=== PATIENT | female | born 1985 | race Caucasian/White ===

== ENCOUNTER 2018-05-17 12:57 | Emergency (ER) | payer OTHER ==
[2018-05-17 14:00] VITALS: BP 114/86; PULSE 91; RESP 20; TEMP 97.3; O2SAT 95
[2018-05-17] MEDS ORDERED: ACETAMI/HYDROCO 325/10 TAB PO ONE (14:15)
[2018-05-17] MEDS ORDERED: KETOROLAC TROMETHAMINE 30 MG/ML SOL IM ONE (14:15)
[2018-05-17] MEDS ORDERED: KETOROLAC TROMETHAMINE 30 MG/ML SOL ONE (14:20)
[2018-05-17] MEDS ORDERED: APAP/HYDROCODONE 1 EACH TABLET PO ONE (14:20)
[2018-05-17] MEDS ORDERED: APAP/HYDROCODONE 1 EACH TABLET ONE (14:20)
== END 2018-05-17 15:44 | disposition home or self-care (01) | DRG 563 ==
LOC: ED 12:57
DX: S82.434A Nondisplaced oblique fracture of shaft of right fibula, initial encounter for closed fracture (principal); X58.XXXA Exposure to other specified factors, initial encounter; Y92.003 Bedroom of unspecified non-institutional (private) residence as the place of occurrence of the external cause
CPT/HCPCS: 29515; 73610; 96372; 99283; 99284; J1885; A9270-GY; E0114